=== PATIENT | male | born 1965 | race Caucasian/White ===

== ENCOUNTER → 2024-01-01 07:45 | Outpatient (REF) | payer OTHER, SELFPAY | LOC: RAD 07:45 | PROVIDERS: ATTENDING PHYSICIAN Otolaryngology; FAMILY PHYSICIAN Internal Medicine | DX: J38.00 Paralysis of vocal cords and larynx, unspecified (principal); Y84.4 Aspiration of fluid as the cause of abnormal reaction of the patient, or of later complication, without mention of misadventure at the time of the procedure | CPT/HCPCS: 74230; 92611 ==

== ENCOUNTER 2024-11-25 06:19 | Day surgery (SDC) | payer OTHER, SELFPAY ==
[2024-11-25 12:58] VITALS: BMI 23.0
[2024-11-25 12:59] VITALS: BP 135/91
[2024-11-25 14:17] VITALS: BP 113/73
[2024-11-25 14:30] VITALS: BP 122/77
[2024-11-25 14:45] VITALS: BP 119/74
== END 2024-11-25 14:59 | disposition home or self-care (01) ==
LOC: GI 06:19
PROVIDERS: ATTENDING PHYSICIAN Internal Medicine Gastroenterology
DX: Z12.11 Encounter for screening for malignant neoplasm of colon (principal); D12.3 Benign neoplasm of transverse colon; D12.5 Benign neoplasm of sigmoid colon; D12.7 Benign neoplasm of rectosigmoid junction; D12.8 Benign neoplasm of rectum; K64.8 Other hemorrhoids
CPT/HCPCS: 45385; 88305

== ENCOUNTER → 2025-01-15 11:30 | Outpatient (REF) | payer OTHER, SELFPAY | LOC: RAD 11:30 | PROVIDERS: ATTENDING PHYSICIAN Psychiatry & Neurology Neurology | DX: M13.80 Other specified arthritis, unspecified site (principal) | CPT/HCPCS: 72050; 73030 ==